=== PATIENT | female | born 1975 | race Caucasian/White ===

== ENCOUNTER 2020-12-10 09:17 | Outpatient (CLI) | payer OTHER | END 2020-12-10 09:18 | disposition home or self-care (01) | LOC: CSHMRI 09:17 | PROVIDERS: ATTEND Orthopaedic Surgery | DX: M25.511 Pain in right shoulder (principal); S43.431A Superior glenoid labrum lesion of right shoulder, initial encounter; M75.91 Shoulder lesion, unspecified, right shoulder; S46.011A Strain of muscle(s) and tendon(s) of the rotator cuff of right shoulder, initial encounter; M25.811 Other specified joint disorders, right shoulder ==